=== PATIENT | female | born 2005 | race Two or more races ===

== ENCOUNTER 2025-01-07 00:47 | Emergency (ER) | payer OTHER ==
--- NOTE | 2025-01-07 01:41 | DVH ---
CLINICAL INDICATION: pain TECHNIQUE: XYXY R FOOT 3 VIEW XRAY Comparison: None FINDINGS/IMPRESSION: : There is no evidence of acute fracture or dislocation. Soft tissues are unremarkable.
[2025-01-07] MEDS ORDERED: METH4PAK PO (01:52)
--- NOTE | 2025-01-07 01:54 | ED.PDOC ---
Back pain HPI HPI Comments Pt has cc of right foot pain x yestrday. States the pain is currently 5/10 with numbness and tingling. Pt denies any injury.Denies fevers, chills, or hx of dvts. 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 MERCHANT MILLER History Family History Family History: Reviewed,noncontributory to illness Social History Smoker: Non-Smoker Alcohol: Denies ETOH Use Drugs: Denies Drug Use All Other Systems: Reviewed and Negative (see hpi) Physical Exam General Appearance: No Apparent Distress, Normal HEENT: Pharynx Normal Neck: Full Range of Motion, Non-Tender Respiratory: Lungs Clear, No Respiratory Distress, Normal Breath Sounds Cardiovascular: No Murmur, Normal Peripheral Pulses, Regular Rate/Rhythm Breast Exam: Deferred Gastrointestinal: Non Tender, Soft Genitalia: Deferred Pelvic: Deferred Rectal: Deferred Extremities: No calf tenderness, Normal capillary refill, Normal range of motion, No pedal edema Musculoskeletal : Location: Right Extremity Location: Foot (Tenderness of the dorsum aspect strength sensory motion intact positive pedal pulse no noted gross visible external trauma) Apperance: Normal Neurologic: Alert, No Motor Deficits, Normal Affect, Normal Mood, No Sensory Deficits Cerebellar Function: Normal Reflexes: NOT DONE Skin: Dry, Normal Color, Warm Lymphatic: No Adenopathy Was a procedure done? Was a procedure done?: No Back Pain Differential Dx Differential Diagnosis: Fracture, Musculoskeletal Pain X-Ray, Labs, Meds, VS Vital Signs Date Time Temp Pulse Resp B/P (MAP) Pulse Ox O2 Delivery O2 Flow Rate FiO2 01/07/25 00:48 97.9 97 16 139/90 99 97.9 X-Ray, Labs, Meds, VS Comment TECHNIQUE: XYXY R FOOT 3 VIEW XRAY Comparison: None FINDINGS/IMPRESSION: : There is no evidence of acute fracture or dislocation. Soft tissues are unremarkable. Patient given Toradol 60 mg IM reports improvement in pain and function requesting discharge at this time. Likely fasciitis x-ray shows no acute fractures or osseous lesions or dislocations. We will script trial of Medrol Dosepak advised to take medication as prescribed side effects discussed. Advised on rest, elevate, ice and heat. Advised to follow up with her PCP in 2- 3 days if no improvement consider further imaging if symptoms persist. ER return precautions given patient indicates understanding agrees with discharge plan of care. Time of 1ST Reevaluation: 00:50 Reevaluation 1ST: Unchanged Time of 2ND Reevaluation: 01:54 Reevaluation 2ND: Improved Patient Education/Counseling: Diagnosis, Treatment, Need For Follow Up Family Education/Counseling: No Family Present SEPSIS Sepsis Screen Date sepsis recognized/suspect: Jan 07, 2025 Time Sepsis recognized/suspect: 49 Recent Procedure: No On Antibiotic Therapy: No Respiratory Rate >20: No Heart Rate >90: No Temp<36 C (96.8 F) or >38.3 C: No SBP <90 or MAP <65 mmHG: No New Acute Mental Status Change: No Is the patient on CPAP, BIPAP,: No Physician Orders R Foot 3 View Xray (01/07/25 00:57) Ketorolac Injection (Toradol Injection) (01/07/25 02:00) Vital Signs Date Time Temp Pulse Resp B/P (MAP) Pulse Ox O2 Delivery O2 Flow Rate FiO2 01/07/25 00:48 97.9 97 16 139/90 99 97.9 Departure 1 Departure Time of Disposition: 01:54 Impression: Primary Impression: Fasciitis Disposition: 01 HOME / SELF CARE / HOMELESS Condition: Stable e-Prescriptions Methylprednisolone (Medrol Dosepak) 4 Mg Patricio 4 MG PO UD for 6 Days, #21 TAB UAD Prov: DIMAS PRO 01/07/25 Discharged With: Self Critical Care Note Critical Care Time?: No Stability Stability form required: No DIMAS PRO Jan 07, 2025 01:54
[2025-01-07] MEDS: KETOROLAC TROMETH 60MG/2ML VIAL IM ONE (02:00)
[2025-01-07 02:03] VITALS: BP 146/97; PULSE 89; RESP 19; TEMP 98.3; O2SAT 97
[2025-01-08] MEDS ORDERED: GABA-1250 PO (16:44)
[2025-01-08] MEDS ORDERED: IBUP1TAB5 PO (16:44)
== END 2025-01-07 02:11 | disposition home or self-care (01) ==
LOC: ER 00:47
DX: M72.9 Fibroblastic disorder, unspecified (principal); M79.671 Pain in right foot
CPT/HCPCS: 73630; 96372; 99283; J1885

== ENCOUNTER 2025-01-08 15:53 | Emergency (ER) | payer OTHER ==
[~2025-01-08] VITALS: Ht 157.5 cm; Wt 122.2 kg
[~2025-01-08 15:53] MED LIST: METH4PAK PO
[2025-01-08] MEDS ORDERED: IBUP1TAB5 PO (16:44)
[2025-01-08] MEDS ORDERED: GABA-1250 PO (16:44)
--- NOTE | 2025-01-08 16:46 | ED.PDOC ---
Musculoskeletal HPI Comments see triage note Chief Complaint: Lower Extremity Time Seen by MD: 16:42 Reviewed Notes: Nurses Notes, Medications, Allergies Allergies: Coded Allergies: No Known Drug Allergy (Verified Allergy, Unknown, 01/07/25) Home Meds Active Scripts Ibuprofen Micronized (Ibuprofen) 600 Mg Tab, 600 MG PO TID for 7 Days, #21 TAB 0 Refills Prov:MU OBRIEN STAFF REGISTERED NURSE 01/08/25 Gabapentin (Gabapentin) 300 Mg Cap, 1 CAP PO TID for 30 Days, #90 CAP 0 Refills Prov:MU OBRIEN STAFF REGISTERED NURSE 01/08/25 Methylprednisolone (Medrol Dosepak) 4 Mg Patricio, 4 MG PO UD for 6 Days, #21 TAB UAD Prov:DIMAS PRO PRINCIPAL STATISTICAL PROGRAMMER 01/07/25 Information Source: Patient Mode of Arrival: Ambulatory Past Medical History PAST MEDICAL HISTORY: Denies Surgical History: Denies all surgeries 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[employer] MARKER AXLE History Family History Family History: Reviewed,noncontributory to illness Social History Smoker: Non-Smoker Alcohol: Denies ETOH Use Drugs: Denies Drug Use All Other Systems: Reviewed and Negative (per hpi) Physical Exam General Appearance: No Apparent Distress, Normal HEENT: Normal ENT Inspection, Pharynx Normal, TMs Normal Neck: Full Range of Motion, Non-Tender, Normal, Normal Inspection Respiratory: Chest Non-Tender, Lungs Clear, No Accessory Muscle Use, No Respiratory Distress, Normal Breath Sounds Cardiovascular: No Edema, No JVD, No Murmur, No Gallop, Normal Peripheral Pulses, Regular Rate/Rhythm Breast Exam: Deferred Gastrointestinal: No Organomegaly, Non Tender, No Pulsatile Mass, Normal Bowel Sounds, Soft Genitalia: Deferred Pelvic: Deferred Rectal: Deferred Extremities: No calf tenderness, Normal capillary refill, Normal inspection, Normal range of motion, Non-tender, No pedal edema Musculoskeletal : Apperance: Normal Neurologic: Alert, insurance marketing specialist II-XII nml as Tested, No Motor Deficits, Normal Affect, Normal Mood, No Sensory Deficits Cerebellar Function: Normal Reflexes: Normal Skin: Dry, Normal Color, Warm Lymphatic: No Adenopathy Was a procedure done? Was a procedure done?: No Images 1 - No gross abnormality. DP 2+. Neurovascular sensation intact. Differential Diagnosis EXT Differential Diagnosis: Sprain, Other X-Ray, Labs, Meds, VS Vital Signs Date Time Temp Pulse Resp B/P (MAP) Pulse Ox O2 Delivery O2 Flow Rate FiO2 01/08/25 16:52 98.0 90 18 124/88 (100) 97 98.0 01/08/25 16:52 90 18 97 Room Air 01/08/25 15:56 97.6 81 18 111/55 97 97.6 X-Ray, Labs, Meds, VS Comment Patient presents with the atraumatic right foot intermittent numbness and tingling. Exacerbated with walking. No history of injury or prior symptoms. Symptoms suggestive of neuropathy, paresthesia, or neuritis. No signs of empiric circulation or visible damage. The patient will discontinue steroids due to adverse effects and we will initiate gabapentin for neuropathic pain. Patient is stable for discharge at this time. External notes reviewed. Test results and diagnostic imaging interpreted. All diagnostic findings, discharge care, education and instructions provided Follow-up with PCP in 2 to 3 days Patient verbalized understanding and agreed to treatment plan Vital signs stable, afebrile, no acute distress noted Patient ambulatory with strong steady gait Advised to return precautions for any new or worsening symptoms, return to ER immediately for re-evaluation Patient is aware that the purpose of this visit was for an acute medical emergency requiring emergent stabilization. Chronic conditions, including malignancies have not been ruled out. Patient is instructed to follow up with PCP as directed and discharge instructions for continued care and workup. If unable to arrange follow-up, patient is to return to the emergency department for reassessment. Patient (parent or legal guardian if applicable) was given verbal and written discharge instructions and acknowledges understanding. Time of 1ST Reevaluation: 16:30 Reevaluation 1ST: Improved Patient Education/Counseling: Diagnosis, Treatment Family Education/Counseling: Diagnosis, Treatment Departure 1 Departure Time of Disposition: 16:43 Impression: Primary Impression: Neuritis Disposition: 01 HOME / SELF CARE / HOMELESS Condition: Stable e-Prescriptions Ibuprofen Micronized (Ibuprofen) 600 Mg Tab 600 MG PO TID for 7 Days, #21 TAB 0 Refills Prov: MU OBRIEN NP 01/08/25 Gabapentin (Gabapentin) 300 Mg Cap 1 CAP PO TID for 30 Days, #90 CAP 0 Refills Prov: MU OBRIEN STAFF REGISTERED NURSE 01/08/25 Discharged With: Self Critical Care Note Critical Care Time?: No Stability Stability form required: No Heart Score Heart Score: Heart Score Response (Comments) Value History N/A 0 EKG N/A 0 Age N/A 0 Risk Factors N/A 0 Troponin N/A 0 Total 0 MU OBRIEN STAFF REGISTERED NURSE Jan 08, 2025 16:46
[2025-01-08 16:52] VITALS: BP 124/88; PULSE 90; RESP 18; TEMP 98; O2SAT 97
== END 2025-01-08 17:02 | disposition home or self-care (01) ==
LOC: ER 15:53
DX: M79.2 Neuralgia and neuritis, unspecified (principal); Z79.899 Other long term (current) drug therapy